=== PATIENT | male | born 1995 | race Hispanic/Latino ===

== ENCOUNTER 2024-11-23 03:53 | Emergency (ER) | payer OTHER ==
[~2024-11-23] VITALS: Ht 175.3 cm; Wt 81.6 kg
[2024-11-23 04:02] VITALS: TEMP 97.7
[2024-11-23] MEDS: morPHINE 2 MG SYG ONE (04:19)
--- NOTE | 2024-11-23 04:19 | ERN ---
ED Note History of Present Illness Stated Complaint: EPIGASTRIC PAIN RADIATING TO RUQ Chief Complaint: Abdominal Pain Time Seen by MD: 03:56 Dictation: This is a 29-year-old male who presented to the emergency room via EMS with severe excruciating pain 2-3 hours prior to the presentation. He stated that it was a routine day he had about 4 beers and ate some fish jackson for dinner. Once he fell asleep he woke up at 1:00 a.m. with severe excruciating epigastric pain. He has never experienced this before. He also admitted to some vomitings heard no hematemesis or melena no diarrhea. Temperature 97.7 pulse 84 respirations 16 blood pressure 119/74 with a pulse oximetry of 100% on room air Allergies: Coded Allergies: No Known Drug Allergies (Unverified Allergy, Unknown, 11/23/24) Past Medical History Past Medical History: No Pertinent History Family History: Negative Social History: ETOH RN Note Reviewed/Agreed w/PFSH: Yes Review of System Dictation Constitutional: Negative for fever,chills, and weight loss Eyes: Negative for injury, pain,redness, and discharge ENT: Negative for injury,pain or swelling Cardiovascular: Negative for chest pain, palpitations, and edema Respiratory: Negative for shortness of breath, cough, and wheezing, Abdomen/GI: Positive for abdominal pain, nausea, vomiting, denies diarrhea, and constipation Back: Negative for injury and pain : Negative for injury, bleeding and discharge MS/Extremity: Negative for injury and deformity Skin: Negative for rash, and discoloration Neuro: Negative for headache, weakness, numbness, tingling, and seizure Psych: Negative for suicide ideation, homicidal ideation, and hallucinations Initial Vital Sign VS Vital Signs Date Time Temp Pulse Resp B/P (MAP) Pulse Ox O2 Delivery O2 Flow Rate FiO2 11/23/24 03:54 97.7 84 16 119/74 100 Room Air* 0 21 Physical Exam Dictation General: awake, alert, NAD Head/Face: Normocephalic, atraumatic Eyes: PERRL, EOMI, vision at baseline ENT: oral cavity clear, TMs clear, no signs of infection Neck: Trachea midline, supple, no nuchal rigidity Cardiovascular: RRR, normal S1/S2, No MRGs, no JVD Respiratory: CTAB, no respiratory distress, No rales or wheezes Abdomen: Soft, mild tenderness in the epigastrium, non-distended, normal bowel sounds, no guarding or rebound. Skin: Warm, dry, normal turgor, no rash MS/Extremity: Pulses equal, no cyanosis, neurovascular intact, FROM Neuro: COAx4, GCS 15, strength 5/5, CN 2-12 intact, normal cerebellar exam, normal gait, Psych: Normal behavior, mood, and affect normal Extremities-trace edema without any palpable cords, Homans sign is negative Results (Laboratory/Radiology) Laboratory/Radiology Laboratory Tests Test 11/23/24 04:01 11/23/24 04:12 White Blood Count 8.4 K/uL (4.8-10.8) Red Blood Count 5.47 MIL/uL (4.50-6.20) Hemoglobin 16.1 g/dL (14.0-18.0) Hematocrit 47.1 % (42-54) Mean Corpuscular Volume 86.1 fL (79-99) Mean Corpuscular Hemoglobin 29.4 pg (27.0-33.0) Mean Corpuscular Hemoglobin Concent 34.2 g/dL (32.0-36.0) Red Cell Distribution Width 12.4 % (11.0-15.5) Platelet Count 303 K/uL (130-400) Mean Platelet Volume 9.3 fL (7.5-10.5) Immature Granulocyte % (Auto) 0.5 % (0-1) Neutrophils (%) (Auto) 70.5 % (40.0-77.0) Lymphocytes (%) (Auto) 21.5 % (21.0-51.0) Monocytes (%) (Auto) 6.7 % (3.0-13.0) Eosinophils (%) (Auto) 0.4 % (0.0-8.0) Basophils (%) (Auto) 0.4 % (0.0-5.0) Neutrophils # (Auto) 6.0 K/uL (1.8-7.7) Lymphocytes # (Auto) 1.8 K/uL (1.0-4.8) Monocytes # (Auto) 0.6 K/uL (0.1-1.0) Eosinophils # (Auto) 0.03 K/uL (0.00-0.70) Basophils # (Auto) 0.03 K/uL (0.00-0.20) Absolute Immature Granulocyte (auto 0.04 K/uL (0-1) Nucleated Red Blood Cells 0.0 % (0.0-0.19) Sodium Level 142 mmol/L (136-145) Potassium Level 4.0 mmol/L (3.5-5.1) Chloride Level 104 mmol/L (101-111) Carbon Dioxide Level 30 mmol/L (21-32) Blood Urea Nitrogen 16 mg/dL (7-18) Creatinine 1.0 mg/dL (0.5-1.3) Glomerular Filtration Rate Calc 104 mL/min (>90) Random Glucose 104 mg/dL (70-105) Total Calcium 9.3 mg/dL (8.5-10.1) Total Bilirubin 0.2 mg/dL (0.2-1.0) Aspartate Amino Transf (AST/SGOT) 17 U/L (10-37) Alanine Aminotransferase (ALT/SGPT) 31 U/L (12-78) Alkaline Phosphatase 85 U/L (50-136) Total Protein 8.3 g/dL (6.0-8.3) Albumin 4.2 g/dL (3.5-5.0) Amylase Level 41 U/L (25-115) Lipase 27 U/L (16-77) Serum Alcohol 75 mg/dL (0-10) H Urine Color LIGHT-YELLOW (YELLOW) Urine Appearance CLEAR (CLEAR) Urine pH 7.0 (5.0-8.0) Urine Specific [place] 1.013 (1.001-1.031) Urine Protein NEGATIVE mg/dL (NEGATIVE) Urine Glucose (UA) NEGATIVE mg/dL (NEGATIVE) Urine Ketones 5 mg/dL (NEGATIVE) H Urine Occult Blood NEGATIVE (NEGATIVE) Urine Nitrate NEGATIVE (NEGATIVE) Urine Bilirubin NEGATIVE mg/dL (NEGATIVE) Urine Urobilinogen 0.2 mg/dL (0.2-1.0) Urine Leukocyte Esterase NEGATIVE Lon/uL Urine RBC 2-5 /HPF (0-1) H Urine WBC 0-1 /HPF (0-1) Urine Bacteria None /HPF (None Seen) Labs Reviewed?: Yes ED Course ED Course Orders Procedure Category Date Status Time Vital Signs Per CPOE 11/23/24 Transmitted Routine 04:03 Saline Lock Iv CPOE 11/23/24 Transmitted 04:03 Cbc With Differential LAB 1/13/25 Complete 04:03 Comprehensive LAB 11/23/24 Complete Metabolic Panel 04:03 Lipase LAB 11/23/24 Complete 04:03 Amylase LAB 11/23/24 Complete 04:03 Urinalysis Profile LAB 11/23/24 Complete 04:03 Morphine 2mg Syg PHA 11/23/24 Complete (Morphine 2mg Syg) 04:30 Ondansetron 4mg Inj PHA 11/23/24 Complete (Zofran 4mg Inj) 04:30 Famotidine 20mg Tab PHA 11/23/24 Complete (Pepcid 20mg Tab) 04:30 Ondansetron 4mg Inj PHA 11/23/24 Complete (Zofran 4mg Inj) 04:16 Morphine 2mg Syg PHA 11/23/24 Complete (Morphine 2mg Syg) 04:17 Famotidine 20mg Vial PHA 11/23/24 Complete (Pepcid 20mg Vial) 04:17 Famotidine 20mg Vial PHA 11/23/24 Complete (Pepcid 20mg Vial) 04:30 Alcohol, Blood LAB 11/23/24 Complete 04:44 Current Medications Medications (Trade) Dose Ordered Sig/Marcello Route PRN Reason Start Time Stop Time Status Last Admin Dose Admin Famotidine (Pepcid 20mg Vial) 20 mg ONCE ONCE IV 11/23/24 04:30 11/23/24 04:31 DC 11/23/24 04:32 Famotidine (Pepcid 20mg Vial) 20 mg STK-MED ONCE IV 11/23/24 04:17 11/23/24 04:18 DC Famotidine (Pepcid 20mg Tab) 20 mg ONCE ONCE PO 11/23/24 04:30 11/23/24 04:30 DC Morphine Sulfate (morPHINE 2MG SYG) 2 mg ONCE ONCE IVP 11/23/24 04:30 11/23/24 04:31 DC 11/23/24 04:27 Morphine Sulfate (morPHINE 2MG SYG) 2 mg STK-MED ONCE .ROUTE 11/23/24 04:17 11/23/24 04:17 DC Ondansetron HCl (zoFRAN 4MG INJ) 4 mg ONCE ONCE IVP 11/23/24 04:30 11/23/24 04:31 DC 11/23/24 04:23 Ondansetron HCl (zoFRAN 4MG INJ) 4 mg STK-MED ONCE .ROUTE 11/23/24 04:16 11/23/24 04:16 DC Vital Signs Date Time Temp Pulse Resp B/P (MAP) Pulse Ox O2 Delivery O2 Flow Rate FiO2 11/23/24 05:05 74 12 111/71 99 Room Air* 0 21 11/23/24 04:02 97.7 84 16 119/74 100 Room Air 11/23/24 03:56 97.9 81 14 119/74 93 Room Air* 0 21 11/23/24 03:54 97.7 84 16 119/74 100 Room Air* 0 21 We will perform diagnostic labs, advanced imaging and administer medications according to the patient's complaint. Once the results are available, will review and personally interpreted the labs to rule out any acute life- threatening emergency the trach require immediate intervention and treatment. I will then re-evaluate the patient after treatment and diagnostic exams have return to determine whether the patient requires any further testing, can safely be discharged home or need further admission to hospital for additional treatment and evaluation. Labs reviewed CBC within normal limits urinalysis is unremarkable BNP 7 is pending 5:44 a.m.-CBC BNP 7 and urinalysis are within normal limits alcohol level was 75 patient on re-evaluation is feeling much improved his epigastric pain is better Recommended [id number] PPI for of 30 days and abstain from alcohol Medical Decision Making MDM MDM: Differential diagnosis: Gastritis, esophagitis, peptic ulcer disease, cholecystitis, pancreatitis Rationale: Tests considered and ordered secondary to shared decision making include: Previous outside records reviewed: Old ER visits. Risk of complication and/or morbidity or mortality of patient management: None Medications-Per medication reconciliation Need for hospitalization: Patient does not meet criteria for hospitalization. Need for emergency major/minor surgery: No There are no social concerns with this patient. Prescription drug management Prescriptions will include symptomatic care Patient's prior external medical records from other ER visits were reviewed by me as indicated. Prior testing and results from previous visits were reviewed. Prior tests were taken into account with medical decision making and resource utilization, independent historian/historians were used to obtain complete medical history. I independently interpreted the test that were performed, results were reviewed by me and considered findings on radiology if ordered. Medical management and examination interpretation discussions were had by me with other qualified healthcare professionals as indicated for the patient's care. Problem List Problem List: (1) Epigastric pain (2) Alcohol ingestion (3) Gastritis DX & DISP Disposition: Discharge Departure Impression: Primary Impression: Alcohol ingestion Additional Impressions: Epigastric pain, Gastritis Condition: Stable Additional Instructions: Patient and the caregiver have been informed of all the diagnostic tests and the imaging conducted during the today's visit to the emergency room and has verbalized understanding of the results I have personally reviewed and interpreted all diagnostic exams performed here in the ER today as well as the vital signs documented by the nursing staff. The patient is now being discharged to home and should follow up with the primary care physician or the specialist as directed by the ER staff. Follow-up with primary care provider in 1 to 2 days. Take medications as directed here in the emergency room. Okay to continue home medications unless otherwise discussed during your visit in the emergency room today. Return to [facility] emergency room if symptoms worsen or if there is no improvement. Call 911 if you need immediate assistance. Take Tylenol or Motrin [id number] as needed and if no contraindications are present. Increase oral hydration. A wound culture or urine culture was ordered here in the emergency room department please follow-up with primary care provider and advise them to get repeat ports from our facility. If you had any Cristhian wrap/splints that were applied here, please do not remove them until you see your primary care or specialty. DEEPTHI ANAYA MD Nov 23, 2024 04:19
[2024-11-23] MEDS: ondanSETRON 4MG INJ ONE (04:21)
[2024-11-23 04:22] LABS: APPEARANCE,URINE CLEAR (CLEAR); BILIRUBIN,URINE NEGATIVE (NEGATIVE); COLOR,URINE LIGHT-YELLOW (YELLOW); GLUCOSE, URINE (UA) NEGATIVE (NEGATIVE); KETONES,URINE 5 mg/dL (NEGATIVE); LEUKOCYTE ESTERASE ,URINE NEGATIVE Leu/uL (NEGATIVE); NITRATE,URINE NEGATIVE (NEGATIVE); OCCULT BLOOD,URINE NEGATIVE (NEGATIVE); PROTEIN,URINE NEGATIVE (NEGATIVE); UROBILINOGEN,URINE 0.2 mg/dL (0.2-1.0)
[2024-11-23 04:22] LABS: BASOPHILS # (AUTO) 0.03 K/uL (0.00-0.20); BASOPHILS % (AUTO) 0.4 % (0.0-5.0); EOSINOPHILS # (AUTO) 0.03 K/uL (0.00-0.70); EOSINOPHILS % (AUTO) 0.4 % (0.0-8.0); HEMATOCRIT 47.1 % (42-54); IMMATURE GRANULOCYTE ABSOLUTE 0.04 K/uL (0-1); LYMPHOCYTES # (AUTO) 1.8 K/uL (1.0-4.8); LYMPHOCYTES % (AUTO) 21.5 % (21.0-51.0); MEAN CORPUSCULAR HEMOGLOBIN 29.4 pg (27.0-33.0); MEAN CORPUSCULAR HGB CONC 34.2 g/dL (32.0-36.0); MEAN CORPUSCULAR VOLUME 86.1 fL (79-99); MONOCYTES # (AUTO) 0.6 K/uL (0.1-1.0); MONOCYTES % (AUTO) 6.7 % (3.0-13.0); NEUTROPHILS % (AUTO) 70.5 % (40.0-77.0); PLATELET COUNT (AUTO) 303 K/uL (130-400); RED BLOOD CELL COUNT(AUTO) 5.47 MIL/uL (4.50-6.20); RED CELL DISTRIBUTION WIDTH 12.4 % (11.0-15.5); WHITE BLOOD COUNT (AUTO) 8.4 K/uL (4.8-10.8)
[2024-11-23] MEDS: FAMOTIDINE 20MG VIAL IV ONE ×2 (04:22→04:32)
[2024-11-23] MEDS: FAMOTIDINE 20MG TAB PO ONE (04:23)
[2024-11-23] MEDS: ondanSETRON 4MG INJ IVP ONE (04:23)
[2024-11-23 04:26] LABS: ADD UA MICROSCOPIC YES
[2024-11-23] MEDS: morPHINE 2 MG SYG IVP ONE (04:27)
[2024-11-23 04:28] LABS: WBC,URINE 0-1 /HPF (0-1)
[2024-11-23 05:03] LABS: ALBUMIN 4.2 g/dL (3.5-5.0); BILIRUBIN,TOTAL 0.2 mg/dL (0.2-1.0); TOTAL PROTEIN, SERUM 8.3 g/dL (6.0-8.3)
[2024-11-23 05:44] VITALS: BP 109/69; PULSE 70; RESP 15; O2SAT 94
== END 2024-11-23 05:56 | disposition home or self-care (01) ==
LOC: EDH 03:53
DX: K29.70 Gastritis, unspecified, without bleeding (principal); R10.13 Epigastric pain
CPT/HCPCS: 99284; 96374; 96375; 82150; 80053; 83690; 85025; 81001; 36415; J3490; J2270; J2405